=== PATIENT | female | born 1945 | race Caucasian/White ===

== ENCOUNTER 2016-12-27 15:02 | Emergency (ER) | payer MEDICARE ==
--- NOTE | 2016-12-27 15:15 | Emergency Department Record ---
History of Present Illness - General Chief Complaint: Fall Injury Stated Complaint: FALL Time Seen by Provider: 12/27/16 15:14 Source: Patient Mode of Arrival: Ambulatory Limitations: No limitations - History of Present Illness Initial Comments: The patient tripped and fell about 45 minutes ago and landed on concrete. She fell forward and injured her face, R hand and L knee. There was no reported LOC but she does have a hematoma to the forehead. The patient denies any neck pain but is having significant nasal bone pain, L knee and R hand pain. She is not on any blood thinners. MD Complaint: Fall Onset/Timin -: Minutes(s) Fall From: Standing, Other When Fall Occurred: Just prior to arrival Fall Witnessed: Yes, by family Place Fall Occurred: Home Loss of Consciousness: None Prolonged Down Time?: No Symptoms Prior to Fall: None Location: Head Severity: Severe Severity scale (1-10): 9 Quality: Aching Context: Tripped/slipped Associated Symptoms: Headache - Related Data Home Medications Medication Instructions Recorded Confirmed Last Taken Cyclobenzaprine HCl [Flexeril] 10 mg PO QHS 12/27/16 12/27/16 Unknown Hydrochlorothiazide 12.5 mg PO DAILY 12/27/16 12/27/16 Unknown [Hydrochlorothiazide] Metoprolol Succinate [Toprol Xl] 50 mg PO DAILY 12/27/16 12/27/16 Unknown Pantoprazole Sodium 40 mg PO DAILY 12/27/16 12/27/16 Unknown Simvastatin [Simvastatin] 40 mg PO DAILY 12/27/16 12/27/16 Unknown Tramadol HCl [Tramadol HCl] 50 mg PO ASDIR 12/27/16 12/27/16 Unknown Venlafaxine HCl [Venlafaxine HCl 75 mg PO DAILY 12/27/16 12/27/16 Unknown ER] Previous Rx's Medication Instructions Recorded Hydrocodone/Acetaminophen [[place] 1 each PO QID #10 tablet 12/27/16 5-325 Tablet] Allergies Allergy/AdvReac Type Severity Reaction Status Date / Time morphine Allergy HIVES Verified 12/27/16 15:14 Penicillins Allergy ANAPHYLAXIS Verified 12/27/16 15:14 Travel Screening - Travel/Exposure Within Last 30 Days Have you traveled within the last 30 days?: No Review of Systems Constitutional: Denies: Chills, Fever Eyes: Denies: Eye discharge ENT: Denies: Congestion Respiratory: Denies: Cough, Dyspnea Past Medical History - SOCIAL HISTORY Smoking Status: Former smoker Alcohol Use: None Drug Use: None - RESPIRATORY Hx Respiratory Disorders: Yes Hx Asthma: Yes - CARDIOVASCULAR Hx Cardio Disorders: Yes Hx Hypertension: Yes - NEURO Hx Neuro Disorders: No - GI Hx GI Disorders: Yes Hx Reflux: Yes Hx Ulcer: Yes - Hx Genitourinary Disorders: Yes Hx UTI: Yes - ENDOCRINE Hx Endocrine Disorders: No - MUSCULOSKELETAL Hx Musculoskeletal Disorders: Yes Hx Arthritis: Yes - PSYCH Hx Psych Problems: No - HEMATOLOGY/ONCOLOGY Hx Hematology/Oncology Disorders: No Family Medical History Any Significant Family History?: No Physical Exam - General General Appearance: Alert, Oriented x3, Cooperative, No acute distress - Head Head exam: Normocephalic. negative: Atraumatic, Normal inspection Head exam detail: Hematoma - Eye Eye exam: Normal appearance, PERRL, EOMI - ENT Nasal Exam: Other (Neg septal hematoma.). negative: Normal inspection (There are abrasions to the nasal bridge with tenderness.) Throat exam: Normal inspection. negative: Tonsillar erythema, Tonsillar exudate - Neck Neck exam: Normal inspection, Full ROM. negative: Tenderness (There is no posterior cspine tenderness.) - Respiratory Respiratory exam: Normal lung sounds bilaterally. negative: Respiratory distress - Cardiovascular Cardiovascular Exam: Regular rate, Normal rhythm, Normal heart sounds - GI/Abdominal GI/Abdominal exam: Soft, Normal bowel sounds. negative: Tenderness - Extremities Extremities exam: Full ROM, Tenderness (Over the anterior L knee.). negative: Normal inspection (There is mild L knee and R hand tenderness. The R hand tenderness is over the 5th MT.), Joint swelling - Neurological Neurological exam: Alert, Normal gait. negative: Abnormal gait, Motor sensory deficit Course Vital Signs 12/27/16 15:05 Temperature 98.2 F Pulse Rate 114 H Respiratory 20 Rate Blood Pressure 178/105 Pulse Ox 98 - Reevaluation(s) Reevaluation #1: The patient is doing better at this time. She denies any new GÓMEZ or head pain, nausea, or neck pain. I did explain to her that the xrays do not demonstrate any acute abnormality. 12/27/16 16:27 12/27/16 17:24 Reevaluation #2: The patient is doing very well at this time. She denies any new head pain, nausea, or visual changes. She is laughing and joking in the room with her family. 12/27/16 16:37 Reevaluation #3: The patient is doing well at this time. She does have a mild GÓMEZ over the frontal hematoma but no pain to the top or sides of the head. She is up walking with no ataxia or nausea or limping. She feels ready for home. 12/27/16 16:58 Reevaluation #4: The patient is doing well at discharge. Her HR and blood pressure are mildly elevated but I feel it is due to not feeling well and the face and had pain. The patient understands the need for F/U next week to recheck both of those issues. 12/27/16 17:15 Medical Decision Making - Data Complexity MDM Data: X-Ray Ordered and/or Reviewed - Radiology Data Radiology results: Report reviewed (R hand, L Knee, Nasal bones: Neg Head CT : No acute intracranial abnormality. Frontal hematoma.) Disposition Disposition: Discharge Clinical Impression: Nasal injury Qualifiers: Encounter type: initial encounter Qualified Code(s): S09.92XA - Unspecified injury of nose, initial encounter Facial contusion Qualifiers: Encounter type: initial encounter Qualified Code(s): S00.83XA - Contusion of other part of head, initial encounter Head injury, acute Qualifiers: Encounter type: initial encounter Qualified Code(s): S09.90XA - Unspecified injury of head, initial encounter Disposition: Home, Self-Care Condition: (1) Good Instructions: Fall Prevention for Older Adults (ED), Head Injury (ED), Contusion in Adults (ED) Additional Instructions: Please take Tylenol or Tramadol for pain and keep ice to the facial area for 2 days. Watch for any worsening signs of any head injury. Return to the ER for any worsening pain, fever, vomiting, or any trouble walking. Please see your PCP early next week for recheck. Prescriptions: Hydrocodone/Acetaminophen [[place] 5-325 Tablet] 1 each PO QID #10 tablet Forms: Patient Portal Access Time of Disposition: 17:02 Quality - Quality Measures Quality Measures: N/A - Blood Pressure Screening View Details: Yes Does Patient Have Any of the Following: Active Dx of HTN Blood Pressure Classification: Hypertensive Reading Systolic Measurement: 178 Diastolic Measurement: 105 Screening for High Blood Pressure: Patient Exclusion, Hx of HTN [G9744]
[2016-12-27] MEDS: ACETAMINOPHEN 325 MG TAB PO ONE (16:06)
[2016-12-27] MEDS: Diph,Pert(Acell),Tet Vac 0.5 ML SYR IM ONE (16:09)
--- NOTE | 2016-12-29 09:53 | CT SCAN REPORT ---
EXAM: CT SCAN HEAD WO CONTRAST HISTORY: INJURY. TECHNIQUE: Sequential axial images were obtained from the foramen magnum through the vertex without contrast administration. FINDINGS: There is age-appropriate cortical atrophy. There are bilateral craniotomy defects. There is a frontal hematoma. No intracranial abnormality is appreciated. IMPRESSION: 1. NO INTRACRANIAL ABNORMALITY IS APPRECIATED. 2. FRONTAL HEMATOMA. JOB NUMBER: [id number] [facility]
--- NOTE | 2016-12-29 09:56 | RADIOLOGY REPORT ---
EXAM: NASAL BONES HISTORY: INJURY. TECHNIQUE: AP and lateral views of the nasal bones were performed. FINDINGS: No evidence of fracture or dislocation. IMPRESSION: NEGATIVE FOR NASAL BONE FRACTURE DEFORMITY. [facility]BER: [id number] [facility]
--- NOTE | 2016-12-29 09:59 | RADIOLOGY REPORT ---
EXAM: HAND, RIGHT 3 VIEWS HISTORY: PAIN. TECHNIQUE: Three views of the right hand were performed. FINDINGS: No evidence of fracture or dislocation. No lytic or blastic lesion. There is degenerative change of the carpal bones and radiocarpal joint space. IMPRESSION: NO EVIDENCE OF FRACTURE. DEGENERATIVE CHANGE OF THE CARPAL BONES. JOB NUMBER: [id number] [facility]
--- NOTE | 2016-12-29 10:02 | RADIOLOGY REPORT ---
EXAM: KNEE, LEFT 3 VIEWS HISTORY: INJURY. TECHNIQUE: Three views of the left knee were performed. FINDINGS: Diffuse osteopenia. No evidence of fracture or dislocation. No joint effusion. IMPRESSION: OSTEOPENIA. NO EVIDENCE OF FRACTURE. JOB NUMBER: [id number] [facility]
== END 2016-12-27 17:25 | disposition home or self-care (01) ==
LOC: ER 15:02
DX: S00.83XA Contusion of other part of head, initial encounter (principal); S09.90XA Unspecified injury of head, initial encounter; S00.31XA Abrasion of nose, initial encounter; M79.641 Pain in right hand; M25.561 Pain in right knee; W01.198A Fall on same level from slipping, tripping and stumbling with subsequent striking against other object, initial encounter; Y92.009 Unspecified place in unspecified non-institutional (private) residence as the place of occurrence of the external cause
CPT/HCPCS: 70160; 70450; 90715; 96372; 99283; 99284

== ENCOUNTER 2018-05-14 10:34 | Emergency (ER) | payer MEDICARE ==
--- NOTE | 2018-05-14 10:49 | Emergency Department Record ---
History of Present Illness - General Chief complaint: Lower Extremity Pain Stated complaint: LEFT THIGH PAIN Time Seen by Provider: 05/14/18 10:44 Source: Patient, Family Mode of Arrival: Ambulatory Limitations: No limitations - History of Present Illness Initial comments: 73 yo female presents with left thigh pain. She has some medial thigh tenderness as well. The onset was the last day. 30 years ago she did have a DVT after child . In 2013 while on Coumadin she had a fall. She had bilateral subdural hematomas requiring surgery. She has been off anti- coagulation since 2013. She denies any other concerns or symptoms. MD Complaint: Extremity pain -: Days(s) Location: Left History of Same: Yes Radiation: Proximal Quality: Aching Consistency: Constant Improves with: Nothing Worsens with: Palpation Associated Symptoms: Denies other symptoms - Related Data Allergies Allergy/AdvReac Type Severity Reaction Status Date / Time lisinopril Allergy ANAPHYLAXIS Verified 05/14/18 10:48 morphine Allergy HIVES Verified 05/14/18 10:48 Penicillins Allergy ANAPHYLAXIS Verified 05/14/18 10:48 Review of Systems Constitutional: Denies: Chills, Fever, Malaise, Weakness Eyes: Denies: Eye discharge ENT: Denies: Congestion, Throat pain Respiratory: Denies: Cough, Dyspnea, Hemoptysis, Stridor, Wheezes Cardiovascular: Denies: Chest pain, Palpitations, Syncope Endocrine: Denies: Fatigue, Polydipsia, Polyuria Gastrointestinal: Denies: Abdominal pain, Diarrhea, Nausea, Vomiting Genitourinary: Denies: Dysuria, Urgency Musculoskeletal: Reports: Neck pain, Other. Denies: Arthralgia, Back pain, Joint swelling, Myalgia Skin: Reports: Rash (mild erythema in the superficial vessels). Denies: Bruising, Change in color Neurological: Denies: Headache, Numbness, Weakness Psychiatric: Denies: Anxiety Hematological/Lymphatic: Denies: Blood Clots, Easy bleeding, Easy bruising, Swollen glands Past Medical History - SOCIAL HISTORY Smoking Status: Former smoker Drug Use: None - RESPIRATORY Hx Respiratory Disorders: Yes Hx Asthma: Yes - CARDIOVASCULAR Hx Cardio Disorders: Yes Hx Hypertension: Yes - NEURO Hx Neuro Disorders: No - GI Hx GI Disorders: Yes Hx Reflux: Yes Hx Ulcer: Yes - Hx Genitourinary Disorders: Yes Hx UTI: Yes - ENDOCRINE Hx Endocrine Disorders: No - MUSCULOSKELETAL Hx Musculoskeletal Disorders: Yes Hx Arthritis: Yes - PSYCH Hx Psych Problems: No - HEMATOLOGY/ONCOLOGY Hx Hematology/Oncology Disorders: No Physical Exam - General General Appearance: Alert, Oriented x3, Cooperative, No acute distress Limitations: No limitations - Head Head exam: Atraumatic, Normal inspection - Eye Eye exam: Normal appearance. negative: Conjunctival injection - ENT ENT exam: Normal exam Ear exam: Normal external inspection Nasal Exam: Normal inspection Mouth exam: Normal external inspection - Neck Neck exam: Normal inspection - Respiratory Respiratory exam: Normal lung sounds bilaterally - Cardiovascular Cardiovascular Exam: Regular rate, Normal rhythm, Normal heart sounds - GI/Abdominal GI/Abdominal exam: Soft. negative: Tenderness - Rectal Rectal exam: Deferred - exam: Deferred - Extremities Extremities exam: Full ROM, Normal capillary refill, Tenderness. negative: Normal inspection, Calf tenderness, Joint swelling, Pedal edema Image of Full Body: 1 - small area of erythema of the superficail veins of the inner thigh with mild tenderness - Back Back exam: Reports: Normal inspection - Neurological Neurological exam: Alert, Oriented X3 - Psychiatric Psychiatric exam: Normal affect, Normal mood. negative: Agitated, Anxious - Skin Skin exam: Dry, Intact, Normal color, Warm Course - Reevaluation(s) Reevaluation #1: The venous ultrasound doppler report was reviewed. No DVT. Some limitation of the US at the SFV but no signs of DVT. Segmental superficial vein thrombophebitis in the mid left thigh. We discussed the results and my recommendation for a follow up doppler in 5 days or sooner if worse to ensure resolution and no extension. She is to call her PCP today to discuss the follow up. She has been instructed to anticoagulants, NSAIDS or aspirin due to the prior bleed (subdural). She is to continue conservative treatment with warm compresses. She will return to the ED or have her doctor arrange the follow up doppler. She has discussed a filter in the past with her doctors but it has not been indicated to this point in time. 05/14/18 12:38 Disposition Disposition: Discharge Clinical Impression: Superficial thrombophlebitis Qualifiers: Superficial thrombophlebitis-Involved body area: lower extremity Laterality: left Qualified Code(s): I80.02 - Phlebitis and thrombophlebitis of superficial vessels of left lower extremity Disposition: Home, Self-Care Condition: (1) Good Instructions: Superficial Thrombophlebitis (ED) Additional Instructions: Call your doctor for the next available follow up appointment Return to the ER for a recheck if worse, any new concerns or questions Take the prescriptions provided as directed Review this ER visit and the tests performed with your family doctor I recommend a repeat venous doppler of the leg first of the week to ensure the superficial inflammation does not lead to a DVT Forms: Patient Portal Access Time of Disposition: 12:42 Quality - Quality Measures Quality Measures: N/A - Blood Pressure Screening Does Patient Have Any of the Following: No Blood Pressure Classification: Normal BP Reading Systolic Measurement: 113 Diastolic Measurement: 78 Screening for High Blood Pressure: < Normal BP, F/U Not Required > [G8783]
--- NOTE | 2018-05-18 11:04 | US VENOUS DOPPLER REPORT ---
EXAM: VENOUS DOPPLER OF THE LEFT LOWER EXTREMITY HISTORY: LEFT THIGH PAIN. DVT THIRTY YEARS AGO. TECHNIQUE: Davila scale, color Doppler and Duplex Doppler evaluation of the deep venous structures of the left lower extremity was performed from the level of the external iliac vein through the calf veins. Imaging of the right external iliac, common femoral, and greater saphenous veins also performed. FINDINGS: The left external iliac vein, common femoral vein, greater saphenous vein, proximal superficial femoral vein, and mid superficial femoral vein are anechoic and completely compressible. Venous waveforms are noted at all levels and these waveforms are augmentable though augmentation at the common femoral and greater saphenous levels is suboptimal. The distal left superficial femoral vein appears anechoic. Compression is incomplete due to patient pain. No davila scale or color Doppler evidence of thrombus at this level, however. There is a normal venous waveform which is augmentable. The popliteal vein is normal in appearance with normal compression and waveform augmentation. The peroneal, posterior tibial, and anterior tibial veins are compressible with normal venous waveforms. There is evidence of thrombosis of a superficial vein in the mid left thigh possibly due a greater saphenous varicosity. No evidence of deep venous thrombosis within the right external iliac vein, common femoral vein nor greater saphenous vein. IMPRESSION: THERE IS THROMBUS WITHIN A SUPERFICIAL VEIN WITHIN THE MID LEFT THIGH. NO CONVINCING EVIDENCE OF DEEP VENOUS THROMBOSIS WITHIN THE LEFT LOWER EXTREMITY THOUGH EVALUATION OF THE DISTAL ASPECT OF THE SUPERFICIAL FEMORAL VEIN IS SOMEWHAT LIMITED WITH COMPRESSION NOT WELL DEMONSTRATED DUE TO PATIENT PAIN. JOB NUMBER: [id number] [facility]
== END 2018-05-14 13:10 | disposition home or self-care (01) ==
LOC: ER 10:34
DX: I80.02 Phlebitis and thrombophlebitis of superficial vessels of left lower extremity (principal); I10 Essential (primary) hypertension; Z87.891 Personal history of nicotine dependence
CPT/HCPCS: 99283

== ENCOUNTER 2018-06-01 14:46 | Emergency (ER) | payer MEDICARE ==
--- NOTE | 2018-06-01 15:06 | Emergency Department Record ---
History of Present Illness - General Chief complaint: Lower Extremity Pain Stated complaint: LT LEG CLOT? Time Seen by Provider: 06/01/18 14:59 Source: Patient Mode of Arrival: Ambulatory Limitations: No limitations - History of Present Illness Initial comments: The patient is here due to L thigh pain for almost 3 weeks. She was here 18 days ago and had a neg L leg Doppler for DVT. It did demonstrate superficial thrombophlebitis. The patient was to see her PCP for a repeat exam but now is here due to worsening L medial thigh pain. She denies any CP, SOB, EVELIA, or L leg swelling. MD Complaint: Extremity pain Onset/Timin -: Week(s) Location: Left, Thigh, Other History of Same: Yes Radiation: Proximal, Distal Severity scale (1-10): 7 Quality: Aching Consistency: Constant Improves with: Nothing Worsens with: Nothing Associated Symptoms: Denies other symptoms - Related Data Previous Rx's Medication Instructions Recorded Clindamycin HCl [Cleocin HCl] 300 mg PO QID #28 capsule 06/01/18 Allergies Allergy/AdvReac Type Severity Reaction Status Date / Time lisinopril Allergy ANAPHYLAXIS Verified 06/01/18 14:58 morphine Allergy HIVES Verified 06/01/18 14:58 Penicillins Allergy ANAPHYLAXIS Verified 06/01/18 14:58 Travel Screening - Travel/Exposure Within Last 30 Days Have you traveled within the last 30 days?: No Review of Systems Constitutional: Denies: Chills, Fever Eyes: Denies: Eye discharge ENT: Denies: Congestion Respiratory: Denies: Cough, Dyspnea Past Medical History - SOCIAL HISTORY Smoking Status: Former smoker Alcohol Use: None Drug Use: None - RESPIRATORY Hx Respiratory Disorders: Yes Hx Asthma: Yes - CARDIOVASCULAR Hx Cardio Disorders: Yes Hx Deep Vein Thrombosis: Yes Hx Hypertension: Yes - NEURO Hx Neuro Disorders: No - GI Hx GI Disorders: Yes Hx Reflux: Yes Hx Ulcer: Yes - Hx Genitourinary Disorders: Yes Hx UTI: Yes - ENDOCRINE Hx Endocrine Disorders: No - MUSCULOSKELETAL Hx Musculoskeletal Disorders: Yes Hx Arthritis: Yes - PSYCH Hx Psych Problems: No - HEMATOLOGY/ONCOLOGY Hx Hematology/Oncology Disorders: No Family Medical History Any Significant Family History?: No Physical Exam - General General Appearance: Alert, Oriented x3, Cooperative, No acute distress - Head Head exam: Atraumatic, Normocephalic, Normal inspection - Eye Eye exam: Normal appearance - Neck Neck exam: Normal inspection, Full ROM. negative: Tenderness - Respiratory Respiratory exam: Normal lung sounds bilaterally. negative: Respiratory distress - Cardiovascular Cardiovascular Exam: Regular rate, Normal rhythm, Normal heart sounds - Extremities Extremities exam: Full ROM, Tenderness (There is tenderness over the inflamed vein area.), Other (The lower legs are NVI with normal distal pulses.). negative: Normal inspection (There is slight lacy erythema and tenderness over the previous site of the superficial thrombophlebitis. ), Calf tenderness, Joint swelling, Pedal edema Image of Full Body: 1 - Area of superficial thrombophlebitis. Course Vital Signs 06/01/18 14:53 Temperature 97.5 F L Pulse Rate 63 Respiratory 18 Rate Blood Pressure 152/110 Pulse Ox 94 L - Reevaluation(s) Reevaluation #1: The patient is doing very well at this time. She denies any CP or SOB and has normal vital signs. I did discuss the neg US for DVT with the patient and the need for repeat testing in 2 weeks. She is to see her new PCP in 2 weeks as planned or see her previous PCP in [place] for recheck. 06/01/18 17:35 Reevaluation #2: I did discuss the plan with the PCP the patient is going to see in 2 weeks who is Doctor Pérez and he agrees with the plan for no anticoagulation and F/U in 2 weeks as planned. 06/01/18 17:38 Medical Decision Making - Data Complexity MDM Data: X-Ray Ordered and/or Reviewed - Radiology Data Radiology results: Report reviewed (L leg Doppler: Neg for DVT, Slightly worse superficial thrombophlebitis mid to distal GSV with varicosities.) Disposition Disposition: Discharge Clinical Impression: Superficial thrombophlebitis Qualifiers: Superficial thrombophlebitis-Involved body area: lower extremity Laterality: unspecified laterality Qualified Code(s): I80.00 - Phlebitis and thrombophlebitis of superficial vessels of unspecified lower extremity Disposition: Home, Self-Care Condition: (2) Stable Instructions: Superficial Thrombophlebitis (ED) Additional Instructions: PLease take the Clindamycin as directed and use warm compresses. Return to the ER for any worsening symptoms. Prescriptions: Clindamycin HCl [Cleocin HCl] 300 mg PO QID #28 capsule Forms: Patient Portal Access Time of Disposition: 17:40 Quality - Quality Measures Quality Measures: N/A - Blood Pressure Screening View Details: Yes Does Patient Have Any of the Following: Active Dx of HTN Blood Pressure Classification: Hypertensive Reading Systolic Measurement: 162 Diastolic Measurement: 93 Screening for High Blood Pressure: Patient Exclusion, Hx of HTN [G9744]
[2018-06-01] MEDS ORDERED: TRAMADOL HCL 50 MG TABLET PO ONE (16:01)
[2018-06-01] MEDS ORDERED: CLINDAMYCIN 150 MG CAP PO ONE ×2 (17:34→17:40)
--- NOTE | 2018-06-03 08:39 | US VENOUS DOPPLER REPORT ---
EXAM: LEFT LOWER EXTREMITY VENOUS DOPPLER EXAMINATION HISTORY: LEFT LEG PAIN FOR THE PAST TWO PLUS WEEKS. SUPERFICIAL THROMBOSIS WITHIN THE LEFT LOWER EXTREMITY ON A PREVIOUS STUDY TWO WEEKS AGO. TECHNIQUE: Duplex Doppler evaluation of the left lower extremity deep venous system was performed in the standard fashion. Comparison: 05/14/18. FINDINGS: There is thrombus within the great saphenous vein and superficial varicose veins within the mid to distal thigh region. This corresponds to the area of pain and skin discoloration. This appears more prominent than on the prior examination. The deep venous system within the left lower extremity from the external iliac vein through the calf veins is normal. There is normal flow, phasicity, augmentation and compression throughout the deep venous system. Comparison images of the right external iliac vein, common femoral vein, and greater saphenous vein superiorly are normal. IMPRESSION: 1. SUPERFICIAL VEIN THROMBOSIS INVOLVING THE GREATER SAPHENOUS VEIN AND ADJACENT SUPERFICIAL VARICOSITIES WITHIN THE MID TO DISTAL THIGH. 2. THERE IS NO THROMBUS WITHIN THE LEFT LOWER EXTREMITY DEEP VENOUS SYSTEM. JOB NUMBER: [id number] [facility]
== END 2018-06-01 17:50 | disposition home or self-care (01) ==
LOC: ER 14:46
DX: I80.02 Phlebitis and thrombophlebitis of superficial vessels of left lower extremity (principal); I10 Essential (primary) hypertension; Z87.891 Personal history of nicotine dependence
CPT/HCPCS: 99283